=== PATIENT | female | born 1965 | race Caucasian/White ===

== ENCOUNTER 2019-07-26 11:51 | Day surgery (SDC) | payer OTHER ==
[~2019-07-26] VITALS: Ht 154.9 cm; Wt 66.9 kg
== END 2019-07-26 13:41 | disposition home or self-care (01) ==
LOC: ORSCSDS 11:51
PROVIDERS: Internal Medicine Gastroenterology
PROC: 0DBN8ZX Excision of Sigmoid Colon, Via Natural or Artificial Opening Endoscopic, Diagnostic (ICD-10-PCS; principal; 2019-07-26 13:00)
DX: Z12.11 Encounter for screening for malignant neoplasm of colon (principal); D12.5 Benign neoplasm of sigmoid colon; K64.8 Other hemorrhoids
CPT/HCPCS: 88305; J2704; J7120

== ENCOUNTER 2022-10-31 11:33 | Emergency (ER) | payer OTHER ==
[~2022-10-31] VITALS: Ht 154.9 cm; Wt 63.5 kg
[2022-10-31 16:38] LABS: BASOPHILS ABSOLUTE AUTO 0.03 K/mm3 (0.00-0.23); BASOPHILS PERCENT AUTO 0 % (0-2); EOSINOPHILS ABSOLUTE AUTO 0.01 K/mm3 (0.00-0.68); EOSINOPHILS PERCENT AUTO 0 % (0-6); Hematocrit 34.3 % (33.0-51.0); Hemoglobin 11.7 g/dL (11.5-16.0); IMMATURE GRAN ABSOLUTE AUTO 0.05 K/mm3 (0.00-0.10); IMMATURE GRAN PERCENT AUTO 0 % (0-1); LYMPHOCYTES ABSOLUTE AUTO 1.23 K/mm3 (0.84-5.20); LYMPHOCYTES PERCENT AUTO 10 % (21-46); MONOCYTES ABSOLUTE AUTO 0.67 K/mm3 (0.16-1.47); MONOCYTES PERCENT AUTO 5 % (4-13); Mean Corpuscular HGB 29.8 pg (26.0-34.0); Mean Corpuscular HGB Conc 34.1 g/dL (31.5-36.5); Mean Corpuscular Volume 87 fL (80-100); Mean Platelet Volume 10.2 fL (9.1-12.4); NEUTROPHILS PERCENT AUTO 84 % (41-73); Platelet Count 240 K/mm3 (150-400); RDW Standard Deviation 41.8 fL (35.1-46.3); Red Blood Cell Count 3.93 M/mm3 (3.80-5.20); White Blood Cell Count 12.69 K/mm3 (4.00-11.30)
[2022-10-31 16:58] LABS: Albumin/Globulin Ratio 1.5 (0.8-1.8); Bilirubin, Total 0.7 mg/dL (0.1-1.0); Bun/Creatinine Ratio 21.4 (12.0-20.0); Calcium, Blood 9.2 mg/dL (8.5-10.1); Creatinine, Blood 0.56 mg/dL (0.40-1.00); Globulin, Blood 2.6 g/dL (2.2-4.0); Potassium, Blood 4.1 mmol/L (3.5-5.5); Total Protein, Blood 6.6 g/dL (6.4-8.2)
[2022-10-31 17:18] LABS: Influenza A, PCR NEGATIVE (NEGATIVE); Influenza B, PCR NEGATIVE (NEGATIVE); Resp Syncytial Virus, PCR NEGATIVE (NEGATIVE); SARS-Cov-2 (COVID-19) PCR, MMC NEGATIVE (NEGATIVE)
[2022-10-31 20:10] VITALS: BP 106/69
== END 2022-10-31 21:16 | disposition home or self-care (01) ==
LOC: ER 11:33
PROVIDERS: Student in an Organized Health Care Education/Training Program
DX: S72.402A Unspecified fracture of lower end of left femur, initial encounter for closed fracture (principal); W11.XXXA Fall on and from ladder, initial encounter; Z88.0 Allergy status to penicillin; Z87.891 Personal history of nicotine dependence
CPT/HCPCS: 0241U; 29505; 73562-LT; 80053; 85025; 90471; 90702; 90715; 96374-59; 96375-59; 96376-59; 99285-25; J1170; J3010